=== PATIENT | male | born 1935 | race Two or more races ===

== ENCOUNTER 2021-04-21 06:55 | Outpatient (CLI) | payer OTHER | END 2021-04-21 06:57 | disposition home or self-care (01) | LOC: LAB 06:55 | PROVIDERS: ATTEND Orthopaedic Surgery | DX: M85.9 Disorder of bone density and structure, unspecified (principal); E83.42 Hypomagnesemia; E56.1 Deficiency of vitamin K ==

== ENCOUNTER 2022-12-08 09:27 | Outpatient (CLI) | payer OTHER | END 2022-12-08 09:30 | disposition home or self-care (01) | LOC: LAB 09:27 | PROVIDERS: ATTEND Orthopaedic Surgery | DX: D64.9 Anemia, unspecified (principal); E88.9 Metabolic disorder, unspecified; D68.8 Other specified coagulation defects; N39.0 Urinary tract infection, site not specified; Z22.322 Carrier or suspected carrier of Methicillin resistant Staphylococcus aureus; E11.9 Type 2 diabetes mellitus without complications; I10 Essential (primary) hypertension; Z76.89 Persons encountering health services in other specified circumstances; I49.9 Cardiac arrhythmia, unspecified ==

== ENCOUNTER 2022-12-09 14:18 | Inpatient (IN) | payer OTHER ==
[~2022-12-09] VITALS: Ht 172.7 cm; Wt 65.8 kg
[2022-12-10] MEDS ORDERED: ZESTRIL10 M1 PO (08:16)
[2022-12-10] MEDS ORDERED: ZOCOR20 MG PO (08:17)
[2022-12-13] MEDS ORDERED: XARELTO10 M1 (15:28)
[2022-12-13] MEDS ORDERED: NABUMETONE500 MG (15:28)
== END 2022-12-16 14:58 | disposition other institution (70) | DRG 470 ==
LOC: O/R 12-13 12:16 → SURG 12-13 12:16
PROVIDERS: ADMIT Orthopaedic Surgery; ATTEND Orthopaedic Surgery
PROC: 8E0Y0CZ Robotic Assisted Procedure of Lower Extremity, Open Approach (ICD-10-PCS; 2022-12-13)
PROC: 3E0F7SF Introduction of Other Gas into Respiratory Tract, Via Natural or Artificial Opening (ICD-10-PCS; 2022-12-13)
PROC: 0SRD069 Replacement of Left Knee Joint with Oxidized Zirconium on Polyethylene Synthetic Substitute, Cemented, Open Approach (ICD-10-PCS; principal; 2022-12-13 07:00)
DX: M17.12 Unilateral primary osteoarthritis, left knee (principal); I10 Essential (primary) hypertension